=== PATIENT | male | born 1995 | race American Indian/Alaskan Native ===

== ENCOUNTER 2020-07-26 23:34 | Emergency (ER) | payer OTHER ==
[2020-07-27 01:28] VITALS: BP 114/71
--- NOTE | 2020-07-27 02:35 | XRay Report ---
LUMBAR SPINE HISTORY: Lower back pain COMPARISON: None. TECHNIQUE: 2 view(s) of the lumbar spine obtained. FINDINGS: Vertebrae: Normal alignment. No displaced fracture or significant abnormality. Disc Spaces:No significant abnormality. Facet Joints:No significant abnormality. Additional findings: None. IMPRESSION: 1. No significant abnormality of the lumbar spine. Signer Name: Shanika Khanna MD Signed: 07/27/2020 2:31 AM Workstation Name: [email or web address]
--- NOTE | 2020-07-27 02:36 | XRay Report ---
RIGHT ANKLE RADIOGRAPH, 3 VIEWS INDICATION / CLINICAL INFORMATION: right ankle pain COMPARISON: None available. FINDINGS: BONES / JOINT(S): No acute displaced fracture or subluxation. No significant arthritis. SOFT TISSUES: No significant abnormality. ADDITIONAL FINDINGS: None. Signer Name: Shanika Khanna MD Signed: 07/27/2020 2:32 AM Workstation Name: [email or web address]
--- NOTE | 2020-07-27 02:38 | XRay Report ---
RIGHT SHOULDER RADIOGRAPH, 3 VIEWS; LEFT SHOULDER RADIOGRAPH, 3 VIEWS INDICATION / CLINICAL INFORMATION: bilateral shoulder pain COMPARISON: None available. FINDINGS: BONES / JOINT(S): No acute displaced fracture or subluxation. No significant arthritis. SOFT TISSUES: No significant abnormality. ADDITIONAL FINDINGS: None. Signer Name: Shanika Khanna MD Signed: 07/27/2020 2:34 AM Workstation Name: [email or web address]
--- NOTE | 2020-07-27 02:39 | XRay Report ---
RIGHT HIP RADIOGRAPH, 3 VIEWS INDICATION / CLINICAL INFORMATION: right hip pain COMPARISON: None available. FINDINGS: BONES / JOINT(S): No acute displaced fracture or subluxation. No significant arthritis. SOFT TISSUES: No significant abnormality. ADDITIONAL FINDINGS: None. Signer Name: Shanika Khanna MD Signed: 07/27/2020 2:35 AM Workstation Name: [email or web address]
[2020-07-27] MEDS ORDERED: ACETAMINOPHEN 500 MG TAB ONE (05:39)
[2020-07-27] MEDS ORDERED: IBUPROFEN 600 MG TAB PO ONE ×2 (05:39→05:40)
[2020-07-27] MEDS ORDERED: ACETAMINOPHEN 500 MG TAB PO ONE (05:40)
== END 2020-07-27 05:41 | disposition home or self-care (01) ==
LOC: ED 23:34
DX: M54.5 Low back pain (principal); M25.551 Pain in right hip; M25.511 Pain in right shoulder; V23.4XXA Motorcycle driver injured in collision with car, pick-up truck or van in traffic accident, initial encounter; Y93.89 Activity, other specified; Y92.488 Other paved roadways as the place of occurrence of the external cause; Y99.8 Other external cause status
CPT/HCPCS: 72100; 99283